=== PATIENT | female | born 1940 | race Caucasian/White ===

== ENCOUNTER 2025-03-06 06:37 | Inpatient (IN) ==
--- NOTE | 2025-02-13 09:45 | PAT Medication Instructions ---
Medication Instructions Date of Service February 13, 2025 Home Medications hydrochlorothiazide 12.5 mg tablet 12.5 mg PO QAM lisinopril 20 mg tablet 20 mg PO QAM mirtazapine 7.5 mg tablet 7.5 mg PO HS multivitamin 1 tab PO QAM simvastatin 10 mg tablet 10 mg PO HS DO NOT take the morning of surgery hydrochlorothiazide 12.5 mg tablet 12.5 mg PO QAM lisinopril 20 mg tablet 20 mg PO QAM multivitamin 1 tab PO QAM Take evening before surgery mirtazapine 7.5 mg tablet 7.5 mg PO HS simvastatin 10 mg tablet 10 mg PO HS MORNING OF SURGERY: NOTHING TO EAT OR DRINK AFTER MIDNIGHT Other Notes If you have any questions please call us at [phone] or [phone] or [phone] or [phone]
--- NOTE | 2025-02-15 13:31 | Anesthesiology Consultation ---
Date of Service February 15, 2025 Assessment & Plan (1) Encounter for pre-operative examination: - will request most recent PCP office note, Monika Dee. - Outpatient joint assessment: Patient is currently scheduled for inpatient pathway. If re-evaluated and patient/surgeon requests outpatient pathway, patient is not a candidate for outpatient joint program. Chart Review Chart Review: Pending: Refer to Additional Notes / Consult section and Patient seen in Pre Admission Testing Teaching & Discussion Pre-Anesthesia Teaching/Discussion Notes: Instructed NPO after midnight before surgery, except medications with 15 cc of water. Medication instructions provided according to the PAT guidelines. History Surgery Operation Date: 03/06/25 09:05 Proposed Procedures p Right Total Hip Arthroplasty with Cemented Femur, Hybrid Dual Mobility - Gurjit Montoya MD Height/Weight Height: 4 ft 11 in Weight: 55.6 kg Allergies Allergy/AdvReac Type Severity Reaction Status Date / Time No Known Allergies Allergy Verified 02/13/25 07:33 Medications Home Medications Medication Instructions Recorded Confirmed Last Taken hydrochlorothiazide 12.5 mg tablet 12.5 mg PO QAM 02/13/25 02/13/25 Unknown lisinopril 20 mg tablet 20 mg PO QAM 02/13/25 02/13/25 Unknown mirtazapine 7.5 mg tablet 7.5 mg PO HS 02/13/25 02/13/25 Unknown multivitamin 1 tab PO QAM 02/13/25 02/13/25 Unknown simvastatin 10 mg tablet 10 mg PO HS 02/13/25 02/13/25 Unknown cholecalciferol (vitamin D3) 50 50 mcg PO QAM 02/15/25 02/15/25 Unknown mcg (2,000 unit) tablet ibuprofen 200 mg tablet 200 mg PO Q6H PRN Pain 02/15/25 02/15/25 Unknown Past Medical History Medical History (Updated 02/15/25 @ 14:01 by Purnima Chavira PA-C) History of COVID-19 (~2021) 2019, denies hospitalization, no residual symptoms History of depression w/ recent loss of -patient reports this is stable, is at PAT visit with her son History of hypertension controlled, stable per pt Hx of blood transfusion reaction (~1979) 1979's, during D&C, hives/rash Hx of hyperlipidemia Patient denies h/o stroke, seizures, heart attack, heart failure, DM, or blood clots/DVTs. Exercise / Class Metabolic Activity II 4-5 Yardwork/Stairs/Walk up hill (denies chest discomfort or shortness of breath with one flight of stairs) Past Surgical History Surgical History History of dilatation and curettage History of open reduction and internal fixation (ORIF) procedure left wrist > hardware intact Hx of bilateral cataract extraction Hx of colonoscopy Hx of total hysterectomy with removal of both tubes and ovaries , w/appendectomy Past Anesthesia History No Hx of Anesthesia Complications and No Family Hx of Anesthesia Complications History of PONV No Hx of PONV and No Hx of Motion Sickness Social History Smoking Status: Former smoker Do You Dip or Chew Tobacco: No Smoking End Date: in her s only Hx Alcohol Use: Yes alcohol intake frequency: a few times a month Hx Substance Use: No substance use type: does not use Review of Systems Patient denies chest pain, shortness of breath, dyspnea on exertion, snoring, witnessed apneas, reflux, fever, chills, cough, wheezing, or palpitations. Physical Exam Vital Signs Vitals BP 118/74 P 70 TEMP 97.7 SP02 94% on RA RESP 18 Physical Patient resting comfortably in chair in no acute distress, alert and oriented, responding appropriately throughout visit Full cervical extension range of motion without pain TMD 3.5 finger breadths Mallampati Score 3 Dentition: several caps; denies chipped or loose teeth, crowns, implants or bridges Lungs: normal respiratory effort. Good air movement, clear throughout to auscultation, no adventitious breath sounds Cardiac: regular rate and rhythm, no murmurs noted Carotid arteries: negative bruit bilat Lab Results Anesthesia Preop Results Results Anesthesia Widget: WBC 4.67 K/ul (4.8-10.8) L 02/15/25 Hgb 14.3 g/dl (12.0-16.0) 02/15/25 Hct 43.5 % (37.0-47.0) 02/15/25 Plt 304 K/uL (130-400) 02/15/25 Na 137 mmol/L (136-145) 02/15/25 K 3.8 mmol/L (3.5-5.1) 02/15/25 Cl 104 mmol/L (98-107) 02/15/25 CO2 29 mmol/L (21-32) 02/15/25 BUN 18 mg/dl (6-23) 02/15/25 Creat 0.69 mg/dl (0.6-1.2) 02/15/25 Glucose Level 173 mg/dl (70-99(Fasting)) H 02/15/25 PT 10.1 Seconds (9.0-12.0) 02/15/25 PTT 28 Seconds (21-31) 02/15/25 INR 0.9 (0.9-1.1) 02/15/25 Urine Color Yellow 02/15/25 Urine Appearance Clear (Clear) 02/15/25 Urine pH 5.5 (4.5-7.5) 02/15/25 Urine Specific [place] 1.012 (1.000-1.030) 02/15/25 Urine Protein Negative (Negative) 02/15/25 Urine Glucose (UA) Negative (Negative) 02/15/25 Urine Ketones Negative (Negative) 02/15/25 Urine Blood Negative (Negative) 02/15/25 Urine Nitrite Negative (Negative) 02/15/25 Urine Bilirubin Negative (Negative) 02/15/25 Urine Urobilinogen Negative (Negative) 02/15/25 Urine Leukocyte Esterase Negative (Negative) 02/15/25 Blood Type A Positive 02/15/25 Antibody Screen NEGATIVE 02/15/25 Testing Electrocardiogram Date: 02/15/25 NSR, rate 65 bpm Cannot rule out inferior infarct, age undetermined Minimal criteria for inferior infarct are now present vs 11/19/14 EKG Chest X-Ray Date: 02/15/25 No acute findings.
--- NOTE | 2025-03-06 05:28 | History & Physical Bridge Note ---
Date of Service March 06, 2025 History & Physical Bridge Note I have examined the patient, reviewed the History & Physical and in the interval since the performance of the History & Physical I have noted the following changes of clinical significance: consent and site verified.infection, dislocation, leg length reviewed.no changes noted
[2025-03-06] MEDS ORDERED: PROPOFOL IV EMULSION 10 MG/ML 100 ML VIAL IV ONE (07:20)
[2025-03-06] MEDS ORDERED: LIDOCAINE 2% 2 ML VIAL/AMP(20MG/ML) INFIL ONE (07:20)
[2025-03-06] MEDS ORDERED: MIDAZOLAM HCL 1 MG/ML 2ML VIAL ONE (07:21)
[2025-03-06] MEDS: LR 500ML BOLUS, THEN 15ML/HR IV SCH (07:25)
[2025-03-06] MEDS: LR 60ML/HR IV SCH (07:25)
[2025-03-06] MEDS ORDERED: BUPIVACAINE 0.5 % 5 MG/1 ML PF 10ML VIAL ONE (07:40)
[2025-03-06] MEDS: TRANEXAMIC ACID 1,000 MG **IV Pre-op IV SCH (08:53)
[2025-03-06] MEDS ORDERED: PROMETHAZINE HCL 6.25 MG in SODIUM CHLORIDE 0.9% 50 ML IV PRN (09:10)
[2025-03-06] MEDS ORDERED: ATROPINE SULFATE 0.1 MG/ML 10ML SYR IV PRN (09:10)
[2025-03-06] MEDS ORDERED: NALOXONE HCL 0.4 MG/1 ML VIAL/CARP IV PRN ×2 (09:10→12:01)
[2025-03-06] MEDS ORDERED: FLUMAZENIL 0.1 MG/1 ML 10 ML VIAL IV PRN (09:10)
[2025-03-06] MEDS ORDERED: ONDANSETRON INJ 2 MG/ML 2 ML VIAL IV PRN ×2 (09:10→12:01)
[2025-03-06] MEDS ORDERED: DEXAMETHASONE SOD INJ 4 MG/ML VIAL ONE (09:33)
[2025-03-06] MEDS: ORTHO JOINT ANESTHETIC ONE (09:51)
[2025-03-06] MEDS ORDERED: ePHEDrine sulfate 50 MG/5 ML SYR ONE (10:12)
[2025-03-06] MEDS: ROPIV 0.5% 246mg, Ketorolac 30mg, EPINEPHrine 0.5mg in NSS INFIL SCH (10:35)
--- NOTE | 2025-03-06 10:43 | Post Operative Brief Note ---
Immediate Post Op Note Date of Surgery March 06, 2025 Pre & Post Diagnosis Operation Date: 03/06/25 08:50 Pre-Op Diagnosis: Right Hip Osteoarthritis Post-Op Diagnosis: Right Hip Osteoarthritis I identified the patient and participated in the time-out.: Yes Procedure Operation Date: 03/06/25 08:50 Actual Procedures p Right Total Hip Arthroplasty with Cemented Femur, Hybrid Dual Mobility(Right) - Gurjit Montoya MD Surgeon Gurjit Montoya MD Orthopedic Dentist trish no resident or fellow available Estimated Blood Loss 100 Findings Consistent with Post-Op Diagnosis Severe osteoarthritis with marked labral tearing right hip Fluids 1500 cc Complications None
--- NOTE | 2025-03-06 10:49 | Operative Report ---
Post Operative Report Pre & Post Diagnosis Operation Date: 03/06/25 08:50 Pre-Op Diagnosis: Right Hip Osteoarthritis Post-Op Diagnosis: Right Hip Osteoarthritis I identified the patient and participated in the time-out.: Yes Procedure Operation Date: 03/06/25 08:50 Actual Procedures p Right Total Hip Arthroplasty with Cemented Femur, Hybrid Dual Mobility(Right) - Gurjit Montoya MD Surgeon Gurjit Montoya MD Neonatologist Janice no resident or fellow available Estimated Blood Loss 100 Findings Consistent with Post-Op Diagnosis Severe osteoarthritis right hip with marked labral tearing Fluids 1500 cc Specimens Bone pathology Drains None Complications None Indications Severe pain marked x-ray change failed conservative management Description of Procedure After the patient was brought identified site verified consent verified antibiotics confirmed to be given the right lower extremity was prepared with the patient in left lateral decubitus position. A posterior approach the hip was then carried out. Sharp section carried through skin blunt dissection down to fascia this was then incised under direct vision. Charnley retractor then placed care taken protect the sciatic nerve. Hip abductors were then elevated with a double bent retractor. Short external rotators were then released off the femoral neck. The capsule was then teed and opened and then the hip dislocated the femoral neck resected. Head and neck removed. Retractors then placed anteriorly and inferiorly and superiorly and the remaining labrum which was torn and incarcerated joint was removed. Serial reaming was then carried up. Reamed up to a 48 and then impacted a 48 shell acetabular shell sector cup in the position with excellent anteversion inclination was then secured with an additional 6.5 x 25 mm screw with excellent purchase. Some minor osteophytes were then removed around the margin and then the dual mobility liner impacted into position and excellent technique. The femur was then flexed internally rotated in the proximal femur. With the box folding machine operator canal finder lateralizing rasp. Serial broaching was then carried up to a size 2 standard stem a trial reduction carried out with a 22+4 head leg lengths were excellent stability was excellent. The trial femur implants were then removed wound irrigated with Pulsavac soaked in Betadine and then evacuated a plug placed distally 10.5 mm centralizer and then once that was done after the cement was mixed the after irrigating the canal to make sure there is no fat in it the cement was placed pressurized on the permanent stem placed. After 14 minutes everything was checked it was all solid. The the head and neck were then placed the hip reduced everything was stable leg lengths were excellent. Wound was irrigated 1 final time closed with #2 Vicryl for the capsule short external rotators and deep subcutaneous tissue after the fascia was closed with the same #2 Vicryl. Ortho mix was injected into the superficial layer roughly 40 cc. Subcutaneous layer was then closed with 2-0 plain and stainless steel clips on the skin. Appropriate dressing applied the patient transferred recovery in satisfactory and is having tolerated the procedure well. EBL was 100 cc or less crystalloid 1500 cc bone pathology pending DVT PE prophylaxis to begin tomorrow garcía Weiner was contacted. Summary of implants size 48 shell acetabular shell sector cup DePuy [place] cup hole embedded firmware developer 6.5 x 25 screw 48 x 41 dual mobility liner 41 x 22 poly for the dual mobility liner by mentgovind 22+4 head 2 standard stem cemented and 2.5 mm cemented centralizer 2 bags of Pal[place] G cement. I attest to the content of the Intraoperative Record and any orders documented therein. Any exceptions are noted below.
--- NOTE | 2025-03-06 10:52 | Discharge Summary ---
Date of Service March 07, 2025 Admission HPI Per Admitting Provider Osteoarthritis right hip Principal Diagnosis Osteoarthritis right hip status post hybrid dual mobility total replacement right Discharge Data Allergies Allergy/AdvReac Type Severity Reaction Status Date / Time No Known Allergies Allergy Verified 03/06/25 07:03 Vaccinations None Consultations None Procedures Performed Operation Date: 03/06/25 08:50 Actual Procedures p Right Total Hip Arthroplasty with Cemented Femur, Hybrid Dual Mobility(Right) - Gurjit Montoya MD Hospital Course (1) Status post right hip replacement: Care plan total hip replacement Plan Care plan total total hip placed Total Time Total Time Spent Total Time Spent (In Minutes): 5 Discharge Plan Discharge Items Patient Disposition: Home - Home Health Services Reason For Visit: Right Hip Osteoarthritis Discharge Diagnosis: Status post right total replacement hybrid Activity: Per Instructions section Lifting: Wait until after follow-up appointment Bathing: Keep incision dry Exercise/Sports: Wait until after follow-up appointment Driving/Machine Use: No driving until cleared by Dr. Montoya Weightbearing: Full weightbearing Non-emergency contact: Surgeon Call non-emergency contact if: you have any medication questions, your pain is not controlled, your temperature is above 101, your wound has increased redness, your wound has increased drainage and your wound pain has increased Follow-up/Referrals: Eleazar Skinner [Primary Care Provider] - Diet: Heart Healthy Addtl Attending Provider Instructions: New Medicine: * You will likely be taking one or more of these medicines: 1. Percocet - Take, as directed, when you need it, every four to six hours to control your pain. 2. Iron Sulfate - Take 1x each day for the month after surgery to help you replace the blood lost during surgery. 3. Eliquis - Thins your blood to lessen the chance of forming a blood clot. * The most common side effects of pain medicine and iron are nausea and constipation. If nausea or constipation is too much of a problem or if you have any questions about your new medicines or doses, call [facility] at . We will try to help you manage these issues. "VERY IMPORTANT TO READ AND REVIEW" Blood Clots and Blood Thinning Medicine: * You are given Eliquis during the immediate post-operative period to lessen the risk of blood clots forming in your legs and/or lungs. It is taken for 4 weeks after surgery Pain: * The immediate post-operative period after hip replacement surgery is often quite painful. * You are given a prescription for pain medicine. You should take it, as directed, when you need it, especially before physical therapy and before going to bed. Pain that interferes with sleep is very common and can last several months. * You will likely need pain medicine for the first two to four weeks. It will not stop all of the pain. The pain will lessen and as you feel better, you may change to milder pain medicine such as Tylenol. * The most common side effects of pain medicine are nausea and constipation, so don't take more than you need. Physical Therapy: * Follow the "Hip Precautions Instructions." * In some cases, the social media assistant at the hospital will arrange to have a therapist come to your house for the first couple of weeks to help you learn these skills. * You need to practice on your own or with the help of a family member as needed. * When you learn these skills, most of the therapy can be done on your own. Home Exercise: * You were shown a series of exercises in the hospital. Do these exercises three to four times each day including the exercises you were shown in physical therapy. Walking: * Get up and walk several times each day. For the first four weeks, try not to stand or walk for more than one hour at a time. If you do stand or walk for more than one hour, you will not hurt anything, but your leg will likely swell. * As you feel comfortable, you may change from the walker or crutches to a cane and then to independent walking. SELF CARE INSTRUCTIONS AFTER TOTAL HIP REPLACEMENT Until the incision and soft tissues around your hip have healed, there is a possibility that the hip prosthesis could dislocate. A. Observe the following precautions to prevent dislocation: 1. Don't bend your hip greater than 90 degrees. 2. Avoid crossing your legs or ankles while standing or lying. 3. Sit with your feet placed 6 inches apart. 4. When sitting, keep your knees below your hips. Sit on a firm surface, avoid deep, soft chairs and couches. Use an elevated toilet seat in the bathroom. 5. Don't bend over at the waist. Use a long handled shoehorn and a sock aid to help you put on your shoes and socks. A mapping specialist can help you medicinal plant picker objects that are too high or too low to reach. 6. Keep car riding to a minimum for at least one month after surgery. B. Your balance may be shaky for a while. Use crutches or a walker until directed by your doctor. C. Use hand rails when walking on stairs. D. Wear low heeled shoes with non-slip soles. E. Be sure that your floors are free of things that could trip you - throw rugs, electrical cords, small objects. Avoid wet and waxed floors, especially with crutches and canes. F. Try to walk several times a day with rest periods between. G. Continue with all the exercises taught to you in the hospital. Again, make walking a part of your daily routine. VERY IMPORTANT TO READ AND REVIEW A. Take Eliquis (blood thinning medication) as directed by your doctor. B. There are a few signs you need to watch for after you are home. If you notice any of the followin. Increased severe hip pain. Some pain is expected especially when you exercise. 2. Increased swelling in your leg or knee; pain or swelling of the calf muscle in either lower leg. 3. Any fluid drainage from the incision. 4. Shortness of breath or chest pain. TEDs/Elastic Stockings: * The white elastic stockings help limit swelling and prevent blood clots from forming in your legs. The more you wear them, the more they work. * Wear them for six weeks. Prevention of Infection: * Take antibiotics one hour before any dental cleaning, dental work, urological procedure, gastrointestinal procedure or any invasive surgery in order to prevent your new joint from getting infected. * You may get the antibiotics from the doctor performing the procedure or we will call in a prescription to the pharmacy of your choice. Call the office for a prescription at least 2 days prior to your appointment. Diet: * You may return to previous diet. Things to Watch For: * Drainage from the incision site that occurs more than one week after your surgery. * Severely increased leg pain or swelling. * Increased redness at the incision site. * Fever above 101 degrees Fahrenheit. * Unusual chest pain or shortness of breath. * Unusual pain or burning with urination. MEDICATIONS: * Please take your prescriptions as instructed at your pre-op appointment and/or see medication discharge instructions listed above. * If concerns develop, call your physician's office at . SPECIAL CARE INSTRUCTIONS: * Ice/Elevate as instructed. * Keep dressing clean, dry, intact. * Your surgical extremity may be discolored due to prepping agents used on the skin. A bluish-green tint is a normal variant and should not cause alarm. Call your doctor at [phone] if: * Temperature above 101 degrees * Pain not relieved by pain medicine ordered * There is increased drainage or redness from any incision * You have any unanswered questions, problems or concerns. FOLLOW UP VISIT: * If not already scheduled, please call the office at to schedule a follow-up appointment. Start your Eliquis tonight with dinner. Take it 2x per day. Stand-Alone Forms: My [employer], Smoking Cessation Medications and DC Order Prescriptions: No Action multivitamin Tablet 1 tab PO QAM lisinopril 20 mg Tablet 20 mg PO QAM simvastatin [Zocor] 10 mg Tablet 10 mg PO HS Rx Instructions: Tuesday, Tuesday, Tuesday, Tuesday only mirtazapine 7.5 mg Tablet 7.5 mg PO HS Patient Comments: 02/13/25-short term medication for now, has 1 week left hydrochlorothiazide 12.5 mg Tablet 12.5 mg PO QAM cholecalciferol (vitamin D3) 50 mcg (2,000 unit) Tablet 50 mcg PO QAM ibuprofen 200 mg Tablet 200 mg PO Q6H PRN (Reason: Pain) Admission Data Admit Date/Time: 03/06/25 10:57 Attending Provider: Gurjit Montoya Admit Provider: Gurjit Montoya Primary Care Provider: Eleazar Skinner Other Providers: [facility],Home Healthcare
--- NOTE | 2025-03-06 10:53 | Orthopedic Progress Note ---
Date of Service March 06, 2025 Orthopedic Progress Note Underwent right total replacement doing well with no chest pain shortness of breath fever chills nausea vomiting headache vital signs are stable she is afebrile. Neurovascular check from [facility] are limited by spinal. Son Husam contacted. X-ray pending.
--- NOTE | 2025-03-06 11:00 | Operative Report ---
Post Operative Report Pre & Post Diagnosis Operation Date: 03/06/25 08:50 Pre-Op Diagnosis: Right Hip Osteoarthritis Post-Op Diagnosis: Right Hip Osteoarthritis I identified the patient and participated in the time-out.: Yes Procedure Operation Date: 03/06/25 08:50 Actual Procedures p Right Total Hip Arthroplasty with Cemented Femur, Hybrid Dual Mobility(Right) - Gurjit Montoya MD Surgeon LAYNE Montoya MD Epic Kaleidoscope Analyst [facility] no resident or fellow available Estimated Blood Loss 100 Findings Consistent with Post-Op Diagnosis see operative report Specimens see operative report Drains none Complications none Disposition Accompanied Patient To Recovery: Yes Indications This 85 year old female presented to the office for complaints of persisting right hip pain. She had tried conservative care measures without improvement. She elected to proceed with surgical intervention after being educated about potential risks and outcomes. Preoperative imaging was obtained. Description of Procedure The patient was administered a spinal anesthetic and then taken to the operating room where she was given sedation. She was prepped and draped in the usual sterile fashion. Please see Dr. Montoya's operative report for specifics of the procedure. I was present for the entire case from initial patient positioning through final wound closure. Assistance was provided in tissue retraction, hemostasis, trial implant placement, final implant placement, and final wound closure. The patient was taken to the recovery room in satisfactory condition. I attest to the content of the Intraoperative Record and any orders documented therein. Any exceptions are noted below.
--- NOTE | 2025-03-06 11:06 | Orthopedic Progress Note ---
Date of Service March 06, 2025 Orthopedic Progress Note post op xrays look excellent.
--- NOTE | 2025-03-06 11:35 | XRay Report ---
SINGLE VIEW PELVIS CLINICAL HISTORY: Postoperative examination. FINDINGS: An AP portable view of the pelvis is compared to study dated 01/31/2025. A bipolar right hip arthroplasty is in near-anatomic alignment. A single cortical lag screw transfixes the acetabular cu p. No acute fracture is identified. There are expected postoperative changes overlying the right hip including skin clips, subcutaneous gas, and soft tissue swelling. Mild arthritic change and joint spa ce narrowing is noted at the left hip. Degenerative sclerosis is seen in the sacroiliac joints. There are pelvic phleboliths. IMPRESSION: Expected postoperative findings status post right hip arthroplasty. No acute fracture is seen. ACT 112: Negative or not required by law. Electronically signed by: Minor Tirado M.D. 03/06/2025 11:33 AM
--- NOTE | 2025-03-06 12:00 | Anesthesiology Progress Note ---
Date of Service March 06, 2025 Anesthesia Post Procedure Vital Signs Vital Signs: Temp Pulse Pulse Resp BP Pulse Ox O2 Del Method 03/06/25 11:53 36.6 C 67 14 141/84 H 99 Nasal Cannula 03/06/25 11:45 36.4 C L 62 16 142/77 H 100 Nasal Cannula 03/06/25 11:35 64 18 141/78 H 100 Nasal Cannula 03/06/25 11:25 62 16 140/76 100 Nasal Cannula 03/06/25 11:15 63 16 146/75 H 100 Nasal Cannula 03/06/25 11:05 65 18 139/77 100 Nasal Cannula 03/06/25 10:55 64 14 135/79 99 Nasal Cannula 03/06/25 10:48 36.4 C L 69 16 132/70 97 Nasal Cannula 03/06/25 07:07 36.8 C 64 18 164/91 H 96 Room Air O2 Flow Rate 03/06/25 11:53 2 03/06/25 11:45 2 03/06/25 11:35 2 03/06/25 11:25 2 03/06/25 11:15 2 03/06/25 11:05 2 03/06/25 10:55 3 03/06/25 10:48 3 03/06/25 07:07 Pain Intensity Right Hip: Pain Intensity: 4 Transfer of Care Handoff Completed per policy Notes Mental Status: alert / awake / arousable Patient Amnestic to Procedure: Yes Nausea / Vomiting: adequately controlled Pain: adequately controlled Airway Patency, RR, SpO2: stable & adequate BP & HR: stable & adequate Hydration State: stable & adequate Neuraxial Anesthesia: was administered and sensory block is resolving Anesthetic Complications: no major complications apparent
[2025-03-06] MEDS ORDERED: diphenhydrAMINE 50 MG/ML VIAL IV PRN (12:01)
[2025-03-06] MEDS ORDERED: HYDROmorphone INJ 0.5 MG/0.5 ML SYR IV PRN (12:01)
[2025-03-06] MEDS ORDERED: METOCLOPRAMIDE HCL INJ 5 MG/ML 2 ML VIAL IV PRN (12:01)
[2025-03-06] MEDS ORDERED: ALUMINUM/MAGNESIUM SUSP 30 ML UDC PO PRN (12:01)
[2025-03-06] MEDS ORDERED: MAGNESIUM HYDROXIDE SUSP 30 ML UDC PO PRN (12:01)
[2025-03-06] MEDS: SODIUM CHLORIDE 0.9% 1,000 ML IV SCH (12:51)
[2025-03-06] MEDS: KETOROLAC TROMETHAMINE 15 MG/ML VIAL IV SCH (12:57)
[2025-03-06] MEDS: ACETAMINOPHEN 500 MG TAB PO SCH (13:57)
--- NOTE | 2025-03-06 14:32 | Orthopedic Progress Note ---
Date of Service March 06, 2025 Assessment & Plan Admission and Anticipated Discharge Date Admission Date: March 06, 2025 Orthopedic Progress Note Postop check. She is sitting up in bed denies chest pain shortness of breath fever chills nausea vomiting or headache. Vital signs are stable she is afebrile. Postop x-rays look excellent. Neurovascular check from sciatic nerve is normal. Wound dressing clean dry and intact. Assessment emphasized getting out of bed using the bathroom with assistance. Using her walker. She be weightbearing as tolerated on the right leg. Avoid postural indiscretions. Begin DVT PE prophylaxis tomorrow.
[2025-03-06] MEDS: FERROUS GLUCONATE 324 MG TAB PO SCH (16:53)
[2025-03-06] MEDS: ASCORBIC ACID 500 MG TAB PO SCH (16:53)
[2025-03-06] MEDS: DOCUSATE SODIUM 100 MG CAP PO SCH (21:24)
[2025-03-06] MEDS: SENNA 8.6 MG TAB PO SCH (21:25)
[2025-03-06] MEDS: SIMVASTATIN 10 MG TAB PO SCH (21:26)
[2025-03-06] MEDS: MIRTAZAPINE TAB 15 MG TAB PO SCH (21:26)
[2025-03-06 23:42] VITALS: O2SAT 96
[2025-03-07 06:45] LABS: Hematocrit (blood only) 33.6 % (37.0-47.0); Hemoglobin 11.0 g/dl (12.0-16.0); Immature Granulocytes # (auto) 0.05 K/uL (0.01-0.20); Immature Granulocytes % (auto) 0.5 %; Mean Corpuscular Hemoglobin 30.3 pg (25.0-34.0); Mean Corpuscular Volume 92.6 fL (80.0-100.0); Platelet Count 237 K/uL (130-400); RDW Standard Deviation 46.1 fL (36.4-46.3); Red Blood Count 3.63 M/uL (4.20-5.40); White Blood Count 9.93 K/ul (4.8-10.8)
--- NOTE | 2025-03-07 07:07 | Orthopedic Progress Note ---
Date of Service March 07, 2025 Assessment & Plan Admission and Anticipated Discharge Date Admission Date: March 06, 2025 Orthopedic Progress Note Doing well postop day #1 status post right total replacement. Moves quite well in bed. Neurovascular check femoral sciatic nerve is normal. Denies chest pain shortness of breath fever chills nausea vomiting or headache. Vital signs are stable she is afebrile. Hip located. Wound dressing removed wound is clean and dry. Wound redressed. Calves nontender. Assessment doing well plan is to discharge to home after PT OT today. Initiate adding anticoagulation today.
[2025-03-07 07:09] LABS: Anion Gap 4.0 (3-11); Blood Urea Nitrogen 19.0 mg/dl (6-23); Calcium 9.1 mg/dl (8.6-10.3); Carbon Dioxide 25.0 mmol/L (21-32); Chloride 109.0 mmol/L (98-107); Creatinine Clr Calc Pharmacy 45.8 ml/min; Glucose 109.0 mg/dl (70-99(Fasting)); Potassium 4.3 mmol/L (3.5-5.1); Sodium 138.0 mmol/L (136-145)
[2025-03-07 07:55] VITALS: BP 153/79; PULSE 66; RESP 16; TEMP 97.5
[2025-03-07] MEDS: dexAMETHasone 10 MG in SYRINGE 0 ML IV SCH (08:02)
[2025-03-07] MEDS: APIXABAN 2.5 MG TAB PO SCH (08:06)
[2025-03-07] MEDS: hydroCHLOROthiazide 25 MG TAB PO SCH (08:06)
[2025-03-07] MEDS: MULTIVITAMIN TAB PO SCH (08:06)
== END 2025-03-07 10:46 | disposition home health service (06) | DRG 470 ==
LOC: ASU 06:37 → 3E 10:57 → 3N 12:25